=== PATIENT | female | born 1940 | race Caucasian/White ===

== ENCOUNTER → 2018-04-06 | Outpatient (CLI) | payer MEDICARE, OTHER ==
[~2018-04-06] MED LIST: ALPR0.25 PO; CALC-823 PO; FLUT16SP22 NSEACH; IBUP1CAP11 PO; LEVO125T PO; NF-ESOM40C PO
--- NOTE | 2018-04-06 11:29 | Diagnostic Imaging Report ---
INDICATION: Dyspnea. TIME OF EXAMINATION: 11:09 AM. COMPARISON: 10/03/2016. FINDINGS: The heart size is stable. There is a tiny nodular density in the right upper lung which appears fairly dense and may represent a granuloma. Otherwise, the lungs are clear. No effusion or pneumothorax is seen. Postsurgical changes in the thyroid bed are noted. IMPRESSION: No acute cardiopulmonary process is detected. There is a tiny nodular density in the right upper lobe measuring approximately 3 mm in size. This was not well seen on prior imaging. A short interval followup to confirm stability is recommended. Serial chest radiography or CT chest could be performed. Dictated by: Dictated on workstation # [id number]
== END ==
LOC: RAD 10:33
PROVIDERS: ATTEND Internal Medicine
DX: R06.00 Dyspnea, unspecified (principal)
CPT/HCPCS: 71046

== ENCOUNTER → 2018-04-15 | Outpatient (CLI) | payer MEDICARE, OTHER | LOC: RT 08:30 | PROVIDERS: ATTEND Internal Medicine | DX: R06.00 Dyspnea, unspecified (principal) | CPT/HCPCS: 94060; 94726; 94729 ==

== ENCOUNTER 2018-04-23 16:45 | Emergency (ER) | payer MEDICARE, OTHER ==
[~2018-04-23] VITALS: Ht 160 cm; Wt 70.3 kg
[2018-04-23] MEDS ORDERED: TETANUS,DIPTH,PERTUSS P/F (BOOSTRIX) 0.5 ML VIAL IM ONE (17:00)
[2018-04-23] MEDS ORDERED: LIDOCAINE 2% 20 ML (XYLOCAINE) VIAL INJ ONE (17:00)
--- NOTE | 2018-04-23 17:02 | ED Fall/Injury ---
General Chief Complaint: Head/Cervical Problems Stated Complaint: FALL/HEAD INJ Source: patient Exam Limitations: no limitations History of Present Illness Date Seen by Provider: Apr 23, 2018 Time Seen by Provider: 17:00 Initial Comments to ER with reports of a fall and head injury. She tripped while walking and has a hematoma/abrasion to the right side of the forehead. No loss of consciousness no confusion she is not on any anticoagulants. She also fell and hit her chest. She is scheduled to have a CT of the chest on Friday for follow-up on a pulmonary nodule seen on chest x-ray. Occurred: just prior to arrival Severity: moderate Injuries/Pain Location: head, chest Context: slipped Associated Symptoms (Fall): No Headache, No Neck Pain Allergies and Home Medications Allergies Coded Allergies: No Known Drug Allergies (Unverified , 05/07/11) Home Medications Alprazolam 0.25 Mg Tablet, 0.25 MG PO TID PRN for ANXIETY, (Reported) Calcium Carbonate 500 Mg Tablet, 500 MG PO DAILY, (Reported) Esomeprazole Magnesium 40 Mg Cap, 40 MG PO DAILY, (Reported) Fluticasone Propionate 16 Gm Custer.susp, 2 SPR NSEACH DAILY, (Reported) Ibuprofen/Diphenhydramine HCl 1 Each Capsule, 1 EACH PO HS, (Reported) Levothyroxine Sodium 125 Mcg Tablet, 125 MCG PO DAILY, (Reported) Patient Home Medication List Home Medication List Reviewed: Yes Review of Systems Constitutional: see HPI Eyes: No Symptoms Reported Ears, Nose, Mouth, Throat: no symptoms reported Respiratory: no symptoms reported Cardiovascular: no symptoms reported Genitourinary: no symptoms reported Musculoskeletal: no symptoms reported Skin: no symptoms reported Psychiatric/Neurological: No Symptoms Reported Past Olykrha-Wnvoxn-Fnqxco Hx Patient Social History Type Used: Cigarettes Recent Foreign Travel: No Contact w/Someone Who Travel: No Immunizations Up To Date Date of Pneumonia Vaccine: Jul 18, 2015 Date of Influenza Vaccine: Jul 18, 2015 Past Medical History Gallbladder Reproductive Disorders: No Gastroesophageal Reflux Arthritis Melanoma Family Medical History Cataracts 19 FATHER Completed stroke 19 FATHER (possible during his sleep,) Dementia 19 MOTHER Physical Exam Vital Signs Vital Signs - First Documented 04/23/18 16:50 Temp 97.1 Pulse 92 Resp 18 B/P (MAP) 144/85 (104) Pulse Ox 98 Capillary Refill : General Appearance: WD/WN, no apparent distress HEENT: PERRL/EOMI, normal ENT inspection, other (ecchymosis/hematoma over the right side of the forehead.) Neck: non-tender, full range of motion; No tender lateral, No tender midline Respiratory: normal breath sounds, no respiratory distress, no accessory muscle use Gastrointestinal: normal bowel sounds, non tender, soft Neurologic/Psychiatric: alert, normal mood/affect, oriented x 3 Skin: normal color, warm/dry Procedures/Interventions Wound Location: Face Wound Length (cm): 1 Wound's Depth, Shape: linear Wound Explored: clean Other Closure Supply: Wound Adhesive Progress/Results/Core Measures Results/Orders Lab Results Laboratory Tests Test 04/23/18 17:08 Range/Units White Blood Count 6.2 4.3-11.0 10^3/uL Red Blood Count 4.80 4.35-5.85 10^6/uL Hemoglobin 15.0 11.5-16.0 G/DL Hematocrit 43 35-52 % Mean Corpuscular Volume 89 80-99 FL Mean Corpuscular Hemoglobin 31 25-34 PG Mean Corpuscular Hemoglobin Concent 35 32-36 G/DL Red Cell Distribution Width 14.7 H 10.0-14.5 % Platelet Count 101 L 130-400 10^3/uL Mean Platelet Volume 10.8 H 7.4-10.4 FL Neutrophils (%) (Auto) 66 42-75 % Lymphocytes (%) (Auto) 20 12-44 % Monocytes (%) (Auto) 11 0-12 % Eosinophils (%) (Auto) 2 0-10 % Basophils (%) (Auto) 1 0-10 % Neutrophils # (Auto) 4.1 1.8-7.8 X 10^3 Lymphocytes # (Auto) 1.3 1.0-4.0 X 10^3 Monocytes # (Auto) 0.7 0.0-1.0 X 10^3 Eosinophils # (Auto) 0.1 0.0-0.3 10^3/uL Basophils # (Auto) 0.0 0.0-0.1 10^3/uL Sodium Level 141 135-145 MMOL/L Potassium Level 3.9 3.6-5.0 MMOL/L Chloride Level 112 H 98-107 MMOL/L Carbon Dioxide Level 19 L 21-32 MMOL/L Anion Gap 10 5-14 MMOL/L Blood Urea Nitrogen 11 7-18 MG/DL Creatinine 0.69 0.60-1.30 MG/DL Estimat Glomerular Filtration Rate > 60 BUN/Creatinine Ratio 16 Glucose Level 66 L 70-105 MG/DL Calcium Level 8.6 8.5-10.1 MG/DL My Orders Orders - KANDY DANIELS APRN Cbc With Automated Diff (04/23/18 16:58) Basic Metabolic Panel (04/23/18 16:58) Ct Head/Cervical Spine Wo (04/23/18 16:58) Ct Chest W (04/23/18 16:58) Lidocaine 2% Injection 20 Ml (Xylocaine (04/23/18 17:00) Dipht,Pertuss(Acell),Tet Adult (Boostrix (04/23/18 17:00) Iohexol Injection (Omnipaque 350 Mg/Ml 1 (04/23/18 18:00) Sodium Chloride Flush (Catheter Flush Sy (04/23/18 18:00) Ns (Ivpb) (Sodium Chloride 0.9%) (04/23/18 18:00) Medications Given in ED Current Medications Medications Dose Ordered Sig/Bety Route Start Time Stop Time Status Last Admin Dose Admin Iohexol 75 ml ONCE ONCE IV 04/23/18 18:00 04/23/18 18:01 DC 04/23/18 18:02 75 ML Sodium Chloride 10 ml NEEDED PRN IV 04/23/18 18:00 04/23/18 18:02 10 ML Sodium Chloride 250 ml ONCE ONCE IV 04/23/18 18:00 04/23/18 18:01 DC 04/23/18 18:02 80 ML Vital Signs/I&O 04/23/18 16:50 Temp 97.1 Pulse 92 Resp 18 B/P (MAP) 144/85 (104) Pulse Ox 98 Diagnostic Imaging Diagonstic Imaging: CT Plain Films/CT/US/NM/MRI: chest Comments NAME: ALLEN GARBER MED REC#: [id number] PT STATUS: REG ER : 1940 PHYSICIAN: KANDY DANIELS APRN ADMIT DATE: 04/23/18/ER Draft Date of Exam:04/23/18 CT CHEST W INDICATION: Fall with right-sided chest pain. CT chest obtained with IV contrast bolus. There is no prior chest CT for comparison. FINDINGS: There are no enlarged mediastinal or hilar nodes. There are no enlarged axillary nodes or chest wall lesions. There is no evidence of aortic injury or mediastinal hematoma. There is no pleural or pericardial fluid. Bony windows in the chest show no acute findings. Lung parenchymal windows demonstrate no pneumothorax or pulmonary contusion. There is a tiny nodule in the right upper lobe inferiorly measuring about 2-3 mm. Nodules of this size do not require a followup. This is best on image 30 of series 2. Visualized portions of the upper abdomen demonstrate diffuse nodularity of the liver contour with small size of the liver compatible with cirrhosis, with large varices in the left upper quadrant and splenomegaly. IMPRESSION: No acute traumatic process in the chest. No pneumothorax or pleural fluid or contusion. Tiny nodule in the right upper lobe as above; nodules of this size do not require CT followup. There are diffuse cirrhotic changes of the liver with large varices in the left upper quadrant and splenomegaly, compatible with portal hypertension. Dictated on workstation # [id number] Dict: 04/23/18 1804 Trans: 04/23/18 1812 [id number] Interpreted by: JENNA BARCLAY MD Electronically signed by: NAME: ALLEN GARBER [facility] MED REC#: [id number] PT STATUS: REG ER : 1940 PHYSICIAN: KANDY DANIELS APRN ADMIT DATE: 04/23/18/ER Draft Date of Exam:04/23/18 CT HEAD/CERVICAL SPINE WO PROCEDURE: CT head and CT cervical spine without contrast. TECHNIQUE: Multiple contiguous axial images were obtained through the brain and cervical spine without the use of intravenous contrast. Sagittal and coronal reformations through the cervical spine were then performed. INDICATION: Fall. Laceration and bruising along the right temporal region and periorbital region. CT head without: Comparison with 03/11/2015. FINDINGS: There is mild cortical atrophy. There is no evidence of intracranial hemorrhage. No mass effect. No extra-axial fluid collection. Basal cisterns are clear. CP angles are normal. Bone windows show the mastoid air cells to be clear. There is a very small air-fluid level noted in the right maxillary sinus. No fractures demonstrated. IMPRESSION: 1. No acute intracranial abnormalities. No evidence of calvarial fracture. 2. Minimal air-fluid level in the right maxillary sinus likely secondary to inflammatory changes. CT cervical spine: Sagittal and coronal reformatted images. FINDINGS: Good alignment of the vertebral bodies. Body height is well maintained. Atlantoaxial joint appears normal. There is loss of disc space height from C3-C7 with hypertrophic lipping of the endplates both anteriorly and posteriorly. There is no spinal stenosis. No significant bony encroachment is seen. No fractures are demonstrated. IMPRESSION: Diffuse degenerative cervical disc disease with no acute abnormalities. Dictated on workstation # [id number] Dict: 04/23/18 1802 Trans: 04/23/18 1809 [facility] [id number] Interpreted by: EVELYN GOODE MD Electronically signed by: Departure Impression Primary Impression: Traumatic hematoma of forehead Additional Impression: Closed head injury Disposition: 01 HOME, SELF-CARE Condition: Stable Departure-Patient Inst. Decision time for Depature: 18:00 Referrals: YARITZA IBRAHIM MD (PCP/Family) Primary Care Physician Patient Instructions: HEMATOMA Add. Discharge Instructions: All discharge instructions reviewed with patient and/or family. Voiced understanding. Copy Copies To 1: YARITZA IBRAHIM MD, PETER J RESIN MAKER Apr 23, 2018 17:02
[2018-04-23 17:16] LABS: BASOPHILS % (AUTO) 1 % (0-10); EOSINOPHILS # (AUTO) 0.1 10^3/uL (0.0-0.3); EOSINOPHILS % (AUTO) 2 % (0-10); HEMATOCRIT 43 % (35-52); LYMPHOCYTES # (AUTO) 1.3 X 10^3 (1.0-4.0); LYMPHOCYTES % (AUTO) 20 % (12-44); MEAN CORPUSCULAR HEMOGLOBIN 31 PG (25-34); MEAN CORPUSCULAR HGB CONC 35 G/DL (32-36); MEAN CORPUSCULAR VOLUME 89 FL (80-99); MEAN PLATELET VOLUME 10.8 FL (7.4-10.4); MONOCYTES # (AUTO) 0.7 X 10^3 (0.0-1.0); MONOCYTES % (AUTO) 11 % (0-12); NEUTROPHILS # (AUTO) 4.1 X 10^3 (1.8-7.8); NEUTROPHILS % (AUTO) 66 % (42-75); PLATELET COUNT 101 10^3/uL (130-400); RED CELL DISTRIBUTION WIDTH 14.7 % (10.0-14.5); WHITE BLOOD COUNT 6.2 10^3/uL (4.3-11.0)
[2018-04-23 17:30] LABS: BUN/CREATININE RATIO 16; CALCIUM 8.6 MG/DL (8.5-10.1); CARBON DIOXIDE 19 MMOL/L (21-32); CHLORIDE 112 MMOL/L (98-107); CREATININE SERUM 0.69 MG/DL (0.60-1.30); GFR ESTIMATED > 60; GLUCOSE 66 MG/DL (70-105); POTASSIUM 3.9 MMOL/L (3.6-5.0); SODIUM 141 MMOL/L (135-145)
[2018-04-23] MEDS ORDERED: IOHEXOL 350 MG/ML 100 ML (OMNIPAQUE 350) VIAL IV ONE (18:00)
[2018-04-23] MEDS ORDERED: NS 250 ML (IVPB) BAG IV ONE (18:00)
[2018-04-23] MEDS ORDERED: CATHETER FLUSH 10 ML SYR IV PRN (18:00)
--- NOTE | 2018-04-23 18:10 | Diagnostic Imaging Report ---
PROCEDURE: CT head and CT cervical spine without contrast. TECHNIQUE: Multiple contiguous axial images were obtained through the brain and cervical spine without the use of intravenous contrast. Sagittal and coronal reformations through the cervical spine were then performed. INDICATION: Fall. Laceration and bruising along the right temporal region and periorbital region. CT head without: Comparison with 03/11/2015. FINDINGS: There is mild cortical atrophy. There is no evidence of intracranial hemorrhage. No mass effect. No extra-axial fluid collection. Basal cisterns are clear. CP angles are normal. Bone windows show the mastoid air cells to be clear. There is a very small air-fluid level noted in the right maxillary sinus. No fractures demonstrated. IMPRESSION: 1. No acute intracranial abnormalities. No evidence of calvarial fracture. 2. Minimal air-fluid level in the right maxillary sinus likely secondary to inflammatory changes. CT cervical spine: Sagittal and coronal reformatted images. FINDINGS: Good alignment of the vertebral bodies. Body height is well maintained. Atlantoaxial joint appears normal. There is loss of disc space height from C3-C7 with hypertrophic lipping of the endplates both anteriorly and posteriorly. There is no spinal stenosis. No significant bony encroachment is seen. No fractures are demonstrated. IMPRESSION: Diffuse degenerative cervical disc disease with no acute abnormalities. Dictated by: Dictated on workstation # [id number]
--- NOTE | 2018-04-23 18:13 | Diagnostic Imaging Report ---
INDICATION: Fall with right-sided chest pain. CT chest obtained with IV contrast bolus. There is no prior chest CT for comparison. FINDINGS: There are no enlarged mediastinal or hilar nodes. There are no enlarged axillary nodes or chest wall lesions. There is no evidence of aortic injury or mediastinal hematoma. There is no pleural or pericardial fluid. Bony windows in the chest show no acute findings. Lung parenchymal windows demonstrate no pneumothorax or pulmonary contusion. There is a tiny nodule in the right upper lobe inferiorly measuring about 2-3 mm. Nodules of this size do not require a followup. This is best on image 30 of series 2. Visualized portions of the upper abdomen demonstrate diffuse nodularity of the liver contour with small size of the liver compatible with cirrhosis, with large varices in the left upper quadrant and splenomegaly. IMPRESSION: No acute traumatic process in the chest. No pneumothorax or pleural fluid or contusion. Tiny nodule in the right upper lobe as above; nodules of this size do not require CT followup. There are diffuse cirrhotic changes of the liver with large varices in the left upper quadrant and splenomegaly, compatible with portal hypertension. Dictated by: Dictated on workstation # [id number]
[2018-04-23 18:25] VITALS: BP 144/85
== END 2018-04-23 18:25 | disposition home or self-care (01) ==
LOC: EDUNIT# 16:45 → ER 16:46
DX: S09.90XA Unspecified injury of head, initial encounter (principal); S00.83XA Contusion of other part of head, initial encounter; K21.9 Gastro-esophageal reflux disease without esophagitis; Z85.820 Personal history of malignant melanoma of skin; Z79.51 Long term (current) use of inhaled steroids; Z23 Encounter for immunization; W01.198A Fall on same level from slipping, tripping and stumbling with subsequent striking against other object, initial encounter
CPT/HCPCS: 36415; 70450; 71260; 72125; 80048; 85025

== ENCOUNTER → 2018-04-30 | Outpatient (CLI) | payer MEDICARE, OTHER ==
--- NOTE | 2018-04-30 13:44 | Diagnostic Imaging Report ---
INDICATION: Right-sided chest wall pain after fall. COMPARISON: Chest radiograph of 04/06/2018. TECHNIQUE: 3 views of right ribs were obtained. FINDINGS AND IMPRESSION: 1. Acute to subacute minimally displaced fracture of the right anterior eighth rib. 2. No pneumothorax or pleural effusion. Dictated by: Dictated on workstation # [id number]
== END ==
LOC: RAD 10:02
PROVIDERS: ATTEND Internal Medicine
DX: S22.31XA Fracture of one rib, right side, initial encounter for closed fracture (principal); W19.XXXA Unspecified fall, initial encounter
CPT/HCPCS: 71100

== ENCOUNTER → 2018-05-05 | Outpatient (CLI) | payer MEDICARE, OTHER ==
[~2018-05-05] MED LIST changes: +IOHEXOL 350 MG/ML 100 ML (OMNIPAQUE 350) VIAL IV ONE; +NS 250 ML (IVPB) BAG IV ONE
[2018-05-05 10:39] LABS: BASOPHILS # (AUTO) 0.1 10^3/uL (0.0-0.1); BASOPHILS % (AUTO) 1 % (0-10); EOSINOPHILS # (AUTO) 0.2 10^3/uL (0.0-0.3); EOSINOPHILS % (AUTO) 4 % (0-10); HEMATOCRIT 41 % (35-52); HEMOGLOBIN 14.3 G/DL (11.5-16.0); LYMPHOCYTES # (AUTO) 1.5 X 10^3 (1.0-4.0); LYMPHOCYTES % (AUTO) 29 % (12-44); MEAN CORPUSCULAR HEMOGLOBIN 31 PG (25-34); MEAN CORPUSCULAR HGB CONC 35 G/DL (32-36); MEAN CORPUSCULAR VOLUME 89 FL (80-99); MONOCYTES # (AUTO) 0.4 X 10^3 (0.0-1.0); MONOCYTES % (AUTO) 8 % (0-12); NEUTROPHILS # (AUTO) 2.9 X 10^3 (1.8-7.8); NEUTROPHILS % (AUTO) 58 % (42-75); PLATELET COUNT 128 10^3/uL (130-400); RED CELL DISTRIBUTION WIDTH 15.1 % (10.0-14.5)
[2018-05-05 10:52] LABS: INR 1.5 (0.8-1.4); PROTHROMBIN TIME PATIENT 18.1 SEC (12.2-14.7)
[2018-05-05 10:57] LABS: ALANINE AMINOTRANSFERASE 14 U/L (0-55); ALBUMIN 2.9 GM/DL (3.2-4.5); ALKALINE PHOSPHATASE 124 U/L (40-136); BILIRUBIN,TOTAL 2.8 MG/DL (0.1-1.0); BUN/CREATININE RATIO 10; CALCIUM 8.2 MG/DL (8.5-10.1); CARBON DIOXIDE 21 MMOL/L (21-32); CHLORIDE 112 MMOL/L (98-107); GFR ESTIMATED > 60; GLUCOSE 84 MG/DL (70-105); POTASSIUM 3.5 MMOL/L (3.6-5.0); SODIUM 141 MMOL/L (135-145); TOTAL PROTEIN 5.5 GM/DL (6.4-8.2)
--- NOTE | 2018-05-05 13:15 | Diagnostic Imaging Report ---
PROCEDURE: CT chest, abdomen, and pelvis with and without contrast. TECHNIQUE: Precontrast images were obtained of the chest, abdomen, and pelvis. Multiple contiguous axial images were obtained through the chest, abdomen, and pelvis after administration of intravenous contrast. INDICATION: Fall on 04/23/2018 with right rib fracture and anterior chest pain and right upper quadrant pain. COMPARISON: Comparison is made with prior CT from 04/23/2018. FINDINGS: CT chest: There are multiple surgical clips in the region of the thyroid bed. No axillary, hilar or mediastinal lymphadenopathy is detected. No pericardial or pleural fluid is identified. No parenchymal contusion or pneumothorax is seen. There is some subsegmental atelectasis right lower lobe. Evaluation of bony structures demonstrates fractures involving the right anterior eighth rib and right posterior sixth rib. There also appears to be a nondisplaced fracture involving the sternal body. No definite retrosternal hematoma is seen. IMPRESSION: 1. Nondisplaced fracture of the sternal body as well as right sixth and eighth rib fractures. No parenchymal contusion, mediastinal hematoma or pneumothorax is detected. CT abdomen and pelvis: Liver demonstrates nodular contour consistent with cirrhosis. No discrete liver mass is identified. The gallbladder is surgically absent. The pancreas is unremarkable. The spleen is enlarged. Multiple varices in the left abdomen are noted. No adrenal mass is seen. Kidneys are unremarkable apart from a 2mm stone in the mid right ureter with mild hydronephrosis. Aorta is calcified but nonaneurysmal. No free fluid or hemoperitoneum is seen. The bowel loops are of normal caliber. There is no ascites. There is sigmoid diverticulosis without evidence of acute diverticulitis. Bladder and uterus are unremarkable. IMPRESSION: 1. Findings consistent with cirrhosis and portal hypertension. No discrete liver mass is detected. 2. No evidence of abdominal or pelvic visceral injury. 3. Uncomplicated diverticulosis. 4. 2mm mid right ureteric calculus with mild hydronephrosis. Dictated by: Dictated on workstation # [id number]
== END ==
LOC: RAD 10:12
PROVIDERS: ATTEND Physician Assistant
DX: K92.1 Melena (principal); S22.41XA Multiple fractures of ribs, right side, initial encounter for closed fracture; K57.30 Diverticulosis of large intestine without perforation or abscess without bleeding; N13.2 Hydronephrosis with renal and ureteral calculous obstruction
CPT/HCPCS: 36415; 71270; 74178; 80053; 85025; 85610; 85730

== ENCOUNTER → 2019-12-27 | Outpatient (CLI) | payer MEDICARE, OTHER ==
[~2019-12-27] MED LIST changes: -IOHEXOL 350 MG/ML 100 ML (OMNIPAQUE 350) VIAL IV ONE; -NS 250 ML (IVPB) BAG IV ONE
--- NOTE | 2019-12-27 14:25 | Diagnostic Imaging Report ---
INDICATION: Pneumonia. FINDINGS: There is cardiomegaly. There is some patchy right basilar subsegmental atelectasis and/or pneumonitis. There is no pleural effusion or pneumothorax. Mediastinum is unremarkable. IMPRESSION: Cardiomegaly with some patchy right basilar subsegmental atelectasis and/or pneumonitis. Dictated by: Dictated on workstation # [id number]
== END ==
LOC: RAD 11:11
PROVIDERS: ATTEND Nurse Practitioner
DX: J18.9 Pneumonia, unspecified organism (principal); I51.7 Cardiomegaly
CPT/HCPCS: 71046

== ENCOUNTER → 2020-01-10 | Outpatient (CLI) | payer MEDICARE, OTHER ==
--- NOTE | 2020-01-10 16:43 | Diagnostic Imaging Report ---
INDICATION: Pneumonia. PA and lateral views of the chest obtained with comparison made to study of 12/27/2019. There is air trapping, bilaterally. Surgical clips are seen in the lower neck. No consolidation, pneumothorax or pleural effusion is identified. Overall, there has been no significant change. IMPRESSION: Stable background emphysema without acute abnormality or adverse change. Dictated by: Dictated on workstation # [id number]
== END ==
LOC: RAD 13:58
PROVIDERS: ATTEND Nurse Practitioner
DX: J18.9 Pneumonia, unspecified organism (principal); J43.9 Emphysema, unspecified
CPT/HCPCS: 71046

== ENCOUNTER → 2020-03-30 | Outpatient (CLI) | payer MEDICARE, OTHER ==
--- NOTE | 2020-03-30 17:33 | Diagnostic Imaging Report ---
INDICATION: Walking pneumonia. COMPARISON: Two-view chest from 01/10/2020. EXAMINATION: Two views of the chest were obtained. FINDINGS: The lungs are clear. The heart and vessels are normal. There is no effusion or pneumothorax. No focal consolidation. IMPRESSION: No acute appearing radiographic abnormality. Dictated by: Dictated on workstation # [id number]
== END ==
LOC: RAD 14:26
PROVIDERS: ATTEND Nurse Practitioner
DX: J18.9 Pneumonia, unspecified organism (principal)
CPT/HCPCS: 71046

== ENCOUNTER → 2021-03-12 | Outpatient (CLI) | payer MEDICARE, OTHER ==
[2021-03-12 11:51] LABS: HEMOGLOBIN 15.5 g/dL (11.5-16.0); MEAN PLATELET VOLUME 12.1 fL (9.0-12.2); WHITE BLOOD COUNT 4.9 10^3/uL (4.3-11.0)
--- NOTE | 2021-03-12 11:51 | Diagnostic Imaging Report ---
PATIENT HISTORY: CONFUSION, DYSPNEA. TECHNIQUE: Two views of the chest. COMPARISON: 03/30/2020 FINDINGS: The lung volumes are normal. No focal consolidation is seen. No large pleural effusion or pneumothorax is seen. The cardiomediastinal silhouette is normal in size and contour. No acute osseous abnormality is seen. Surgical clips are noted at the neck. IMPRESSION: No acute pulmonary abnormality seen. Dictated by: Dictated on workstation # [id number]
[2021-03-12 12:23] LABS: ALANINE AMINOTRANSFERASE 13 U/L (0-55); ALBUMIN 3.1 GM/DL (3.2-4.5); ALKALINE PHOSPHATASE 104 U/L (40-136); BILIRUBIN,TOTAL 6.2 MG/DL (0.1-1.0); BUN/CREATININE RATIO 13; CALCIUM 8.5 MG/DL (8.5-10.1); CARBON DIOXIDE 20 MMOL/L (21-32); CHLORIDE 111 MMOL/L (98-107); CREATININE SERUM 0.84 MG/DL (0.60-1.30); GFR ESTIMATED > 60; GLUCOSE 76 MG/DL (70-105); POTASSIUM 3.7 MMOL/L (3.6-5.0); SODIUM 143 MMOL/L (135-145)
== END ==
LOC: RAD 11:08
PROVIDERS: ATTEND Nurse Practitioner Family
DX: E80.7 Disorder of bilirubin metabolism, unspecified (principal); R41.0 Disorientation, unspecified
CPT/HCPCS: 36415; 71046; 80053; 85027; 85379

== ENCOUNTER → 2021-05-02 | Outpatient (CLI) | payer MEDICARE, OTHER | LOC: CARD 09:30 | PROVIDERS: ATTEND Nurse Practitioner Family | DX: I07.1 Rheumatic tricuspid insufficiency (principal); I51.7 Cardiomegaly; R60.9 Edema, unspecified | CPT/HCPCS: 93005; 93306 ==

== ENCOUNTER → 2021-05-02 | Outpatient (CLI) | payer MEDICARE, OTHER ==
[~2021-05-02] MED LIST changes: +CATHETER FLUSH 10 ML SYR IV PRN; +HOLD METFORMIN - RECEIVED CONTRAST 20 ML VIAL IV SCH; +IOHEXOL 350 MG/ML 100 ML (OMNIPAQUE 350) VIAL IV ONE; +NS 100 ML (IVPB) BAG IV ONE
--- NOTE | 2021-05-02 16:51 | Diagnostic Imaging Report ---
PROCEDURE: CT angiography of the chest with contrast. TECHNIQUE: Multiple contiguous axial images were obtained through the chest after uneventful bolus administration of intravenous contrast. 3D reconstructed CTA MIP acquisitions were also performed. Auto Exposure Controls were utilized during the CT exam to meet ALARA standards for radiation dose reduction. DATE: May 02, 2021. COMPARISON: Chest radiographs March 12, 2021. CT chest, abdomen, and pelvis May 05, 2018. INDICATION: 80-year-old female, dyspnea. Shortness of breath. FINDINGS: There is no identified pulmonary nodule. There is no lung mass. There is mild dependent atelectasis in the right and left lower lobes. There is no pneumothorax. There is no pleural effusion. The central airways are patent. There is no identified pulmonary embolus. The main pulmonary artery diameter is within normal limits at 2.8 cm. There are atherosclerotic calcifications. The heart is not enlarged. There is no pericardial effusion. There is no identified abnormally enlarged mediastinal, hilar, or axillary lymph node meeting CT size criteria for adenopathy. The thyroid gland appears absent. There is nonspecific fairly diffuse subcutaneous edema. The liver is nodular, consistent with cirrhosis. The patient is status post cholecystectomy. There are dilated collateral vessels in the left upper quadrant. There is nonspecific wall thickening of the stomach. There is a displaced fracture of the sternum which appears likely chronic. There is no identified acute bony abnormality. IMPRESSION: 1. No identified pulmonary embolus or other acute cardiopulmonary abnormality. 2. Cirrhosis. 3. Nonspecific wall thickening of the stomach. This potentially could relate to a nonspecific gastritis, malignancy, or cirrhosis in a hypoalbuminemic state. 4. Nonspecific generalized subcutaneous edema. Dictated by: Dictated on workstation # [id number]
== END ==
LOC: RAD 16:04
PROVIDERS: ATTEND Nurse Practitioner Family
DX: K74.60 Unspecified cirrhosis of liver (principal); R06.00 Dyspnea, unspecified; R06.02 Shortness of breath; R94.31 Abnormal electrocardiogram [ECG] [EKG]
CPT/HCPCS: 71275

== ENCOUNTER → 2021-05-14 | Outpatient (CLI) | payer MEDICARE, OTHER ==
[~2021-05-14] MED LIST changes: -CATHETER FLUSH 10 ML SYR IV PRN; -HOLD METFORMIN - RECEIVED CONTRAST 20 ML VIAL IV SCH; -IOHEXOL 350 MG/ML 100 ML (OMNIPAQUE 350) VIAL IV ONE; -NS 100 ML (IVPB) BAG IV ONE; +RT-ALBUTEROL SULF 2.5 MG/3 ML PRE-MIX VIAL INH ONE
== END ==
LOC: RT 09:30
PROVIDERS: ATTEND Nurse Practitioner Family
DX: Z13.83 Encounter for screening for respiratory disorder NEC (principal); R06.00 Dyspnea, unspecified
CPT/HCPCS: 94060; 94726; 94729

== ENCOUNTER 2021-07-01 16:19 | Inpatient (IN) | payer MEDICARE, OTHER ==
[~2021-07-01] VITALS: Ht 160 cm; Wt 70.3 kg
[~2021-07-01 16:19] MED LIST changes: -RT-ALBUTEROL SULF 2.5 MG/3 ML PRE-MIX VIAL INH ONE
[2021-07-01 16:47] LABS: EOSINOPHILS % (AUTO) 0 % (0-10); HEMOGLOBIN 14.9 g/dL (11.5-16.0); MEAN CORPUSCULAR HEMOGLOBIN 31 pg (25-34)
[2021-07-01 16:49] LABS: BASOPHILS % (AUTO) 0 % (0-10); HEMATOCRIT 46 % (35-52); LYMPHOCYTES # (AUTO) 0.4 10^3/uL (1.0-4.0); LYMPHOCYTES % (AUTO) 6 % (12-44); MEAN CORPUSCULAR HGB CONC 32 g/dL (32-36); MEAN CORPUSCULAR VOLUME 96 fL (80-99); MEAN PLATELET VOLUME 11.8 fL (9.0-12.2); MONOCYTES # (AUTO) 0.4 10^3/uL (0.0-1.0); MONOCYTES % (AUTO) 5 % (0-12); NEUTROPHILS % (AUTO) 89 % (42-75); PLATELET COUNT 72 10^3/uL (130-400); WHITE BLOOD COUNT 7.8 10^3/uL (4.3-11.0)
[2021-07-01 16:52] LABS: ALBUMIN 2.9 GM/DL (3.2-4.5)
--- NOTE | 2021-07-01 16:53 | ED General ---
General Stated Complaint: FALL Source of Information: Patient, Caregiver, EMS Exam Limitations: Physical Impairments (Confusion of patient) History of Present Illness Date Seen by Provider: Jul 01, 2021 Time Seen by Provider: 16:31 Initial Comments Here by EMS after being found in the bathroom confused and down on all fours. Unknown about fall or loss of consciousness. Patient has had history of UTIs causing similar problems but also has been told that she has liver disease and m ay have elevated ammonia levels. The family has been dealing with this for the last 3 to 4 months and it seems to be getting worse. They are unsure of what is going on due to difficulties with doctors appointments because the different providers have canceled for one reason or another. They are very concerned about her health currently. Patient denies any complaints and states that she does not want to be here but she is obviously quite confused and not answering questions well. She does follow simple commands. No report of vomiting or diarrhea. Last known well time was 1 AM. This is when her grandson noted that she had gone to the bathroom and she had told him that he was running late tonight. Apparently the conversation at the time seem to be appropriate but has changed significantly when he found her this afternoon. Timing/Duration: 12 Hours Severity: Moderate Associated Systoms: Weakness Allergies and Home Medications Allergies Coded Allergies: No Known Drug Allergies (Unverified , 05/07/11) Home Medications Alprazolam 0.25 Mg Tablet, 0.25 MG PO TID PRN for ANXIETY, (Reported) Calcium Carbonate 500 Mg Tablet, 500 MG PO DAILY, (Reported) Esomeprazole Magnesium 40 Mg Cap, 40 MG PO DAILY, (Reported) Fluticasone Propionate 16 Gm Ducor.susp, 2 SPR NSEACH DAILY, (Reported) Ibuprofen/Diphenhydramine HCl 1 Each Capsule, 1 EACH PO HS, (Reported) Levothyroxine Sodium 125 Mcg Tablet, 125 MCG PO DAILY, (Reported) Patient Home Medication List Home Medication List Reviewed: Yes Review of Systems Review of Systems Constitutional: No chills, No fever EENTM: no symptoms reported Cardiovascular: No chest pain Gastrointestinal: No vomiting Genitourinary: see HPI, other (Strong smell of urine) Unable to complete review of systems due to patient's underlying confusion and altered mental status. Past Ornnzgz-Ybxajq-Kdvswj Hx Patient Social History Tobacco Use?: No Immunizations Up To Date Tetanus Booster (TDap): Less than 5yrs Past Medical History Surgeries: Yes (c/s x2, melanoma from arm, breast lumpectomy) Gallbladder Respiratory: No (chronic cough) Cardiac: No Neurological: No Reproductive Disorders: No Gastrointestinal: Yes Gastroesophageal Reflux Musculoskeletal: Yes Arthritis Endocrine: Yes Cancer: Yes Melanoma Psychosocial: No Integumentary: No Blood Disorders: No Family Medical History Reviewed Nursing Family Hx Cataracts 19 FATHER Completed stroke 19 FATHER (possible during his sleep,) Dementia 19 MOTHER Physical Exam-Suspected Sepsis Physical Exam Vital Signs Vital Signs - First Documented 07/01/21 16:20 Temp 30.3 Pulse 98 Resp 18 B/P (MAP) 115/72 (86) Pulse Ox 94 O2 Delivery Nasal Cannula O2 Flow Rate 2.00 Capillary Refill : Height, Weight, BMI Height: 5'3.00" Weight: 155lbs. 0.0oz. 70.066905ch; 30.3 BMI Method:Stated General Appearance: WD/WN, Mild Distress HEENT: PERRL/EOMI, Pharynx Normal, Other (Mucous membranes moist) Neck: Full Range of Motion, Normal Inspection, Non Tender, Supple Respiratory: Lungs Clear, Normal Breath Sounds Cardiovascular: Regular Rate, Rhythm, No Murmur Gastrointestinal: Non Tender, Soft Extremity: Normal Capillary Refill, Normal Inspection, Normal Range of Motion, Non Tender, No Calf Tenderness, Pelvis Stable Neurologic/Psychiatric: Other (Awake but confused and slightly agitated. Calms with verbal and is redirectable.) Skin: ecchymosis (Left foot the base of the third toe mild ecchymosis. No obvious deformity. No pain on palpation.) Focused Exam Lactate Level 07/01/21 16:45: Lactic Acid Level 7.44*H Lactic Acid Level Laboratory Tests Test 07/01/21 16:45 Lactic Acid Level 7.44 MMOL/L (0.50-2.00) *H Progress/Results/Core Measures Suspected Sepsis SIRS Temperature: Pulse: Respiratory Rate: Laboratory Tests 07/01/21 16:23: White Blood Count 7.8 Blood Pressure / Mean: 07/01/21 16:45: Lactic Acid Level 7.44*H Laboratory Tests 07/01/21 16:23: Creatinine 1.35H, INR Comment 2.0H, Platelet Count 72L, Total Bilirubin 6.5H Results/Orders Lab Results Laboratory Tests Test 07/01/21 16:23 07/01/21 16:31 07/01/21 16:45 Range/Units White Blood Count 7.8 4.3-11.0 10^3/uL Red Blood Count 4.84 3.80-5.11 10^6/uL Hemoglobin 14.9 11.5-16.0 g/dL Hematocrit 46 35-52 % Mean Corpuscular Volume 96 80-99 fL Mean Corpuscular Hemoglobin 31 25-34 pg Mean Corpuscular Hemoglobin Concent 32 32-36 g/dL Red Cell Distribution Width 15.3 H 10.0-14.5 % Platelet Count 72 L 130-400 10^3/uL Mean Platelet Volume 11.8 9.0-12.2 fL Immature Granulocyte % (Auto) 0 % Neutrophils (%) (Auto) 89 H 42-75 % Lymphocytes (%) (Auto) 6 L 12-44 % Monocytes (%) (Auto) 5 0-12 % Eosinophils (%) (Auto) 0 0-10 % Basophils (%) (Auto) 0 0-10 % Neutrophils # (Auto) 7.0 1.8-7.8 10^3/uL Lymphocytes # (Auto) 0.4 L 1.0-4.0 10^3/uL Monocytes # (Auto) 0.4 0.0-1.0 10^3/uL Eosinophils # (Auto) 0.0 0.0-0.3 10^3/uL Basophils # (Auto) 0.0 0.0-0.1 10^3/uL Immature Granulocyte # (Auto) 0.0 0.0-0.1 10^3/uL Neutrophils % (Manual) 91 % Lymphocytes % (Manual) 6 % Monocytes % (Manual) 3 % Percent Immature Platelet Fraction 3.9 0.0-7.6 % Poikilocytosis SLIGHT Prothrombin Time 23.3 H 12.2-14.7 SEC INR Comment 2.0 H 0.8-1.4 Activated Partial Thromboplast Time 36 H 24-35 SEC Sodium Level 139 135-145 MMOL/L Potassium Level 4.0 3.6-5.0 MMOL/L Chloride Level 107 98-107 MMOL/L Carbon Dioxide Level 15 L 21-32 MMOL/L Anion Gap 17 H 5-14 MMOL/L Blood Urea Nitrogen 17 7-18 MG/DL Creatinine 1.35 H 0.60-1.30 MG/DL Estimat Glomerular Filtration Rate 38 BUN/Creatinine Ratio 13 Glucose Level 127 H 70-105 MG/DL Calcium Level 8.5 8.5-10.1 MG/DL Corrected Calcium 9.4 8.5-10.1 MG/DL Total Bilirubin 6.5 H 0.1-1.0 MG/DL Aspartate Amino Transf (AST/SGOT) 48 H 5-34 U/L Alanine Aminotransferase (ALT/SGPT) 18 0-55 U/L Alkaline Phosphatase 112 40-136 U/L Ammonia 139 H 11-32 UMOL/L C-Reactive Protein High Sensitivity 0.23 0.00-0.50 MG/DL Total Protein 5.9 L 6.4-8.2 GM/DL Albumin 2.9 L 3.2-4.5 GM/DL Urine Color YELLOW Urine Clarity CLEAR Urine pH 7.5 5-9 Urine Specific [place] 1.010 L 1.016-1.022 Urine Protein NEGATIVE NEGATIVE Urine Glucose (UA) NEGATIVE NEGATIVE Urine Ketones NEGATIVE NEGATIVE Urine Nitrite NEGATIVE NEGATIVE Urine Bilirubin NEGATIVE NEGATIVE Urine Urobilinogen >=8.0 < = 1.0 MG/DL Urine Leukocyte Esterase NEGATIVE NEGATIVE Urine RBC (Auto) TRACE-I NEGATIVE Urine RBC 5-10 H /HPF Urine WBC 0-2 /HPF Urine Squamous Epithelial Cells 2-5 /HPF Urine Renal Epithelial Cells 2-5 /HPF Urine Crystals NONE /LPF Urine Bacteria TRACE /HPF Urine Casts PRESENT /LPF Urine Hyaline Casts 5-10 H /LPF Urine Mucus NEGATIVE /LPF Urine Culture Indicated CULTURE PENDING Lactic Acid Level 7.44 *H 0.50-2.00 MMOL/L My Orders Orders - SEBASTIAN ADAMES MD Cbc With Automated Diff (07/01/21 16:39) Comprehensive Metabolic Panel (07/01/21 16:39) Blood Culture (07/01/21 16:39) Sputum Culture (07/01/21 16:39) Urinalysis (07/01/21 16:39) Urine Culture (07/01/21 16:39) Protime With Inr (07/01/21 16:39) Partial Thromboplastin Time (07/01/21 16:39) Chest 1 View, Ap/Pa Only (07/01/21 16:39) Ed Iv/Invasive Line Start (07/01/21 16:39) Vital Signs Adult Sepsis Patie Q15M (07/01/21 16:39) O2 (07/01/21 16:39) Remove Rings In Anticipation O (07/01/21 16:39) Lactic Acid Analyzer (07/01/21 16:39) Ammonia (07/01/21 16:39) Hs C Reactive Protein (07/01/21 16:39) Straight Cath For Spec.-Adult (07/01/21 16:39) Ct Head/Cervical Spine Wo (07/01/21 16:40) Manual Differential (07/01/21 16:23) Vital Signs/I&O 07/01/21 07/01/21 16:20 16:20 Temp 30.3 Pulse 98 Resp 18 B/P (MAP) 115/72 (86) Pulse Ox 94 94 O2 Delivery Nasal Cannula O2 Flow Rate 2.00 2.00 Capillary Refill : Progress Note : Progress Note Seen and evaluated. We will complete normal saline 1 L bolus initiated by EMS. Sepsis protocol initiated. UA obtained via in and out cath. We will check ammo michael level as well due to history of liver disease and elevated ammonia. Monitor patient. 1809: I had a long conversation with the family as her ammonia level was quite elevated as well as her lactic acid. INR is also elevated with low platelets. All of these are indicative of end-stage liver disease. She was told in February that she had 3 to 6 months to live due to her liver failure related to cirrhosis. I did discuss with him multiple options including admission with lactulose which they have accepted. Patient is DNR. They are understanding that the patient is at end-stage. We did discuss hospice briefly and they do understand that that might be an appropriate measure moving forward and I believe are open to that discussion. We will continue treatment for now. If she continues to decline or worsen then comfort care could be discussed. Lactulose 30 mL p.o. ordered for now. Admit, inpatient status. I did discuss the case with Dr. Cordova and she agrees to admission and plan. Family agrees to plan. There is questionable infiltrates on the chest x-ray. CRP is low and white count is normal. She is afebrile. I do believe this is atelectasis. I do believe the lactic acid elevation is related to liver failure and not sepsis. There is no indication of infection currently so no indication of sepsis. Diagnostic Imaging Diagonstic Imaging: CT Plain Films/CT/US/NM/MRI: c-spine, head Comments NAME: CARI GARBERLEY [facility] REC#: [id number] PT STATUS: REG ER : 1940 PHYSICIAN: SEBASTIAN ADAMES MD ADMIT DATE: 07/01/21/ER Draft Date of Exam:07/01/21 CT HEAD/CERVICAL SPINE WO PROCEDURE: CT head and CT cervical spine without contrast. TECHNIQUE: Multiple contiguous axial images were obtained through the brain and cervical spine without the use of intravenous contrast. Sagittal and coronal reformations through the cervical spine were then performed. Auto Exposure Controls were utilized during the CT exam to meet ALARA standards for radiation dose reduction. INDICATION: Fall. Scalp contusion. Head and neck pain. COMPARISON: 04/23/2018. FINDINGS: CT head: No large acute territorial ischemia, mass or hemorrhage. Scattered chronic microvascular disease is present in the periventricular and subcortical white matter. No midline shift or mass effect. The ventricles, cortical sulci and basilar cisterns are patent and unremarkable. The calvarium is intact. The visualized paranasal sinuses are clear. CT cervical spine: No acute fracture or dislocation is seen in the cervical spine. No focal osseous lesion. Generalized osteopenia is noted. The craniocervical junction is well maintained. Mild degenerative changes are seen in the cervical spine with disc osteophyte complexes and uncovertebral arthropathy. Soft tissues of the neck are unremarkable. IMPRESSION: 1. No hemorrhage or focal intra-axial mass. No CT evidence of large acute territorial ischemia. 2. No acute fracture or dislocation in the cervical spine. 3. Scattered chronic microvascular disease in the periventricular and subcortical white matter. Dictated on workstation # [id number] Dict: 07/01/21 1721 Trans: 07/01/21 1726 [facility] [id number] Interpreted by: YASMEEN NIELSON DO Electronically signed by: Diagonstic Imaging: Xray Plain Films/CT/US/NM/MRI: chest Comments [facility] [place] [facility] [id number] PT STATUS: REG ER : 1940 PHYSICIAN: SEBASTIAN ADAMES MD ADMIT DATE: 07/01/21/ER Draft Date of Exam:07/01/21 CHEST 1 VIEW, AP/PA ONLY EXAMINATION: Chest 1 view. HISTORY: Sepsis. COMPARISON: 03/12/2021. FINDINGS: The lung volumes are normal. Patchy opacity is seen in the left lung base. No large pleural effusion or pneumothorax is seen. The cardiomediastinal silhouette is prominent. No acute osseous abnormality is seen. IMPRESSION: 1. Patchy opacities in the left lung base, which may represent atelectasis or infection. 2. Mild cardiomegaly. Dictated on workstation # [id number] Dict: 07/01/211745 Trans: 07/01/21 174 [facility] [id number] Interpreted by: YASMEEN NIELSON DO Electronically signed by: Departure Communication (Admissions) Time/Spoke to Admitting Phy: 18:00 Impression Primary Impression: Hepatic encephalopathy Additional Impression: End stage liver disease Disposition: ADMITTED INPATIENT Condition: Stable Admissions Decision to Admit Reason: Admit from ER (General) Decision to Admit/Date: Jul 01, 2021 Time/Decision to Admit Time: 18:00 Departure-Patient Inst. Referrals: YARITZA IBRAHIM MD (PCP/Family) Primary Care Physician SEBASTIAN ADAMES MD Jul 01, 2021 16:53
[2021-07-01 16:54] LABS: CALCIUM 8.5 MG/DL (8.5-10.1); PROTHROMBIN TIME PATIENT 23.3 SEC (12.2-14.7)
[2021-07-01 16:55] LABS: TOTAL PROTEIN 5.9 GM/DL (6.4-8.2)
[2021-07-01 16:57] LABS: BILIRUBIN,TOTAL 6.5 MG/DL (0.1-1.0)
[2021-07-01 16:58] LABS: CREATININE SERUM 1.35 MG/DL (0.60-1.30)
[2021-07-01 16:58] LABS: BILIRUBIN,URINE NEGATIVE (NEGATIVE); CLARITY,URINE CLEAR; COLOR,URINE YELLOW; GLUCOSE, URINE (UA) NEGATIVE (NEGATIVE); KETONES,URINE NEGATIVE (NEGATIVE); LEUKOCYTE ESTERASE ,URINE NEGATIVE (NEGATIVE); NITRITE,URINE NEGATIVE (NEGATIVE); PH,URINE 7.5 (5-9); PROTEIN,URINE NEGATIVE (NEGATIVE)
[2021-07-01 17:20] LABS: LYMPHOCYTES % (MANUAL) 6 %; MONOCYTES % (MANUAL) 3 %; NEUTROPHILS % (MANUAL) 91 %; POIKILOCYTOSIS SLIGHT
--- NOTE | 2021-07-01 17:27 | Diagnostic Imaging Report ---
PROCEDURE: CT head and CT cervical spine without contrast. TECHNIQUE: Multiple contiguous axial images were obtained through the brain and cervical spine without the use of intravenous contrast. Sagittal and coronal reformations through the cervical spine were then performed. Auto Exposure Controls were utilized during the CT exam to meet ALARA standards for radiation dose reduction. INDICATION: Fall. Scalp contusion. Head and neck pain. COMPARISON: 04/23/2018. FINDINGS: CT head: No large acute territorial ischemia, mass or hemorrhage. Scattered chronic microvascular disease is present in the periventricular and subcortical white matter. No midline shift or mass effect. The ventricles, cortical sulci and basilar cisterns are patent and unremarkable. The calvarium is intact. The visualized paranasal sinuses are clear. CT cervical spine: No acute fracture or dislocation is seen in the cervical spine. No focal osseous lesion. Generalized osteopenia is noted. The craniocervical junction is well maintained. Mild degenerative changes are seen in the cervical spine with disc osteophyte complexes and uncovertebral arthropathy. Soft tissues of the neck are unremarkable. IMPRESSION: 1. No hemorrhage or focal intra-axial mass. No CT evidence of large acute territorial ischemia. 2. No acute fracture or dislocation in the cervical spine. 3. Scattered chronic microvascular disease in the periventricular and subcortical white matter. Dictated by: Dictated on workstation # [id number]
[2021-07-01 17:30] LABS: BACTERIA,URINE TRACE /HPF; WBC,URINE 0-2 /HPF
--- NOTE | 2021-07-01 17:48 | Diagnostic Imaging Report ---
EXAMINATION: Chest 1 view. HISTORY: Sepsis. COMPARISON: 03/12/2021. FINDINGS: The lung volumes are normal. Patchy opacity is seen in the left lung base. No large pleural effusion or pneumothorax is seen. The cardiomediastinal silhouette is prominent. No acute osseous abnormality is seen. IMPRESSION: 1. Patchy opacities in the left lung base, which may represent atelectasis or infection. 2. Mild cardiomegaly. Dictated by: Dictated on workstation # [id number]
[2021-07-01] MEDS ORDERED: LACTULOSE SYRUP 10GM/15ML (ENULOSE) 30ML UDC PO STA (18:08)
[2021-07-01 19:35] VITALS: BP 117/74
[2021-07-01] MEDS ORDERED: ONDANSETRON 4 MG/2 ML (SDV) Z0FRAN IV PRN (20:45)
[2021-07-01] MEDS ORDERED: MILK OF MAGNESIA 400 MG/5 ML 30 ML UDC PO PRN (20:45)
[2021-07-01] MEDS: LACTULOSE SYRUP 10GM/15ML (ENULOSE) 30ML UDC PO SCH (21:15)
[2021-07-01] MEDS: NS IV 1000 ML 1,000 ML IV SCH (21:16)
[2021-07-01 23:23] VITALS: BP 119/59
[2021-07-02] MEDS ORDERED: ALPRAZolam 0.25 MG (XANAX) TAB ONE (00:44)
[2021-07-02] MEDS: ALPRAZolam 0.25 MG (XANAX) TAB PO PRN ×2 (00:58→11:17)
[2021-07-02 03:38] VITALS: BP 94/52
[2021-07-02] MEDS: ANTACID SUSP 30 ML UDC (MYLANTA) PO PRN ×2 (03:57→11:17)
[2021-07-02 06:47] LABS: BASOPHILS % (AUTO) 0 % (0-10); EOSINOPHILS % (AUTO) 0 % (0-10); HEMATOCRIT 39 % (35-52); HEMOGLOBIN 12.7 g/dL (11.5-16.0); LYMPHOCYTES # (AUTO) 1.1 10^3/uL (1.0-4.0); LYMPHOCYTES % (AUTO) 15 % (12-44); MEAN CORPUSCULAR HEMOGLOBIN 31 pg (25-34); MEAN CORPUSCULAR HGB CONC 33 g/dL (32-36); MEAN CORPUSCULAR VOLUME 93 fL (80-99); MEAN PLATELET VOLUME 10.9 fL (9.0-12.2); MONOCYTES # (AUTO) 0.7 10^3/uL (0.0-1.0); MONOCYTES % (AUTO) 9 % (0-12); NEUTROPHILS # (AUTO) 5.6 10^3/uL (1.8-7.8); NEUTROPHILS % (AUTO) 75 % (42-75); PLATELET COUNT 58 10^3/uL (130-400); WHITE BLOOD COUNT 7.5 10^3/uL (4.3-11.0)
[2021-07-02 07:00] LABS: POTASSIUM 3.4 MMOL/L (3.6-5.0)
[2021-07-02 07:01] LABS: CALCIUM 7.9 MG/DL (8.5-10.1)
[2021-07-02 07:06] LABS: CREATININE SERUM 0.91 MG/DL (0.60-1.30)
[2021-07-02 07:44] VITALS: BP 114/70
[2021-07-02] MEDS: NS IV 1000 ML 1,000 ML IV SCH ×2 (07:53→17:46)
[2021-07-02] MEDS: LACTULOSE SYRUP 10GM/15ML (ENULOSE) 30ML UDC PO SCH ×3 (07:54→19:57)
--- NOTE | 2021-07-02 10:56 | History & Physical-Hospitalist ---
History of Present Illness HPI/Chief Complaint Pt is a 81yoCF with a PMH of ESLD who presented to the ER due to altered mental status. She lives with her grandson and was at her normal state when he went to work yesterday. When he returned he found her confused and on the ground. She was unable to tell them if she had fallen. She is still quite confused and unable to tell me any history. She knew her name but otherwise thought she was in a bank and did not know the year. Her son is at bedside and thinks she is somewhat improved from yesterday but not back to normal yet. She apparently was told by her GI doctor that she has ESLD and roughly 3-6 months life expectancy. That was roughly 3 months ago per ER report. Her ammonia was 139 and she was admitted for hepatic encephalopathy. Source: patient Date Seen 07/02/21 Time Seen by a Provider: 10:56 Attending Physician Carlitos Cordova MD PCP Devon Lozano MD Referring Physician Date of Admission Jul 01, 2021 at 17:51 Home Medications & Allergies Home Medications Reviewed patient Home Medication Reconciliation performed by pharmacy medication reconciliations renewable energy technician and/or nursing. Patients Allergies have been reviewed. Allergies Allergies Coded Allergies No Known Drug Allergies (Unverified05/07/11) Past Mdpgttu-Jguvnu-Dggghv Hx Patient Social History Tobacco Use?: No Smoking Status: Former Smoker Smokeless Tobacco Frequency: Never a User Use of E-Cig and/or Vaping dev: No Substance use?: No Alcohol Use?: No Pt feels they are or have been: No Immunizations Up To Date Date of Influenza Vaccine: Jul 18, 2015 First/Initial COVID19 Vaccinat: FEBRUARY 2021 Second COVID19 Vaccination Tio: MARCH 2021 Tetanus Booster (TDap): Unknown Hepatitis A: Yes Hepatitis B: Yes Date of Pneumonia Vaccine: Jul 18, 2015 Current Status status: No status: No Advance Directives: Yes Advance Directive Location: Family to bring in copy Communicates: Verbally Primary Language: Thai Preferred Spoken Language: Thai Is interpretation needed?: No Past Medical History Surgeries: Gallbladder Gastroesophageal Reflux Arthritis Melanoma Blood Disorders: No Family Medical History Reviewed Nursing Family Hx Cataracts 19 FATHER Completed stroke 19 FATHER (possible during his sleep,) Dementia 19 MOTHER Review of Systems ROS-Unable to Obtain: encephalopathy Constitutional: see HPI Physical Exam Physical Exam Vital Signs Vital Signs - First Documented 8/15/21 16:20 Temp 36.3 Pulse 98 Resp 18 B/P (MAP) 115/72 (86) Pulse Ox 94 O2 Delivery Nasal Cannula O2 Flow Rate 2.00 Capillary Refill : Less Than 3 Seconds Height, Weight, BMI Height: 5'3.00" Weight: 155lbs. 0.0oz. 70.569628bj; 28.90 BMI Method:Stated General Appearance: No Apparent Distress, Chronically ill HEENT: PERRL/EOMI, Moist Mucous Membranes; No Scleral Icterus (L), No Scleral Icterus (R) Respiratory: Lungs Clear, No Accessory Muscle Use, No Respiratory Distress Cardiovascular: Regular Rate, Rhythm, No Murmur Gastrointestinal: Normal Bowel Sounds, Non Tender, Soft Extremity: No Calf Tenderness, No Pedal Edema Neurologic/Psychiatric: Alert, Disoriented Skin: Normal Color, Warm/Dry Results Results/Procedures Labs Laboratory Tests 07/01/21 16:23 07/02/21 06:35 Patient resulted labs reviewed. Imaging: Reviewed Imaging Report [facility] [place] [place] NAME: ALLEN GARBER [facility] REC#: [id number] PT STATUS: REG ER : 1940 PHYSICIAN: SEBASTIAN ADAMES MD ADMIT DATE: 07/01/21/ER Signed Date of Exam:07/01/21 CHEST 1 VIEW, AP/PA ONLY EXAMINATION: Chest 1 view. HISTORY: Sepsis. COMPARISON: 03/12/2021. FINDINGS: The lung volumes are normal. Patchy opacity is seen in the left lung base. No large pleural effusion or pneumothorax is seen. The cardiomediastinal silhouette is prominent. No acute osseous abnormality is seen. IMPRESSION: 1. Patchy opacities in the left lung base, which may represent atelectasis or infection. 2. Mild cardiomegaly. Dictated by: Dictated on workstation # [id number] Dict: 07/01/211745 Trans: 07/01/211754 [facility] [id number] Interpreted by: YASMEEN NIELSON DO Electronically signed by: YASMEEN NIELSON DO 07/01/211754 [facility] [place] NAME: ALLEN GARBER [facility] REC#: [id number] PT STATUS: REG ER : 1940 PHYSICIAN: SEBASTIAN ADAMES MD ADMIT DATE: 07/01/21/ER Signed Date of Exam:07/01/21 CT HEAD/CERVICAL SPINE WO PROCEDURE: CT head and CT cervical spine without contrast. TECHNIQUE: Multiple contiguous axial images were obtained through the brain and cervical spine without the use of intravenous contrast. Sagittal and coronal reformations through the cervical spine were then performed. Auto Exposure Controls were utilized during the CT exam to meet ALARA standards for radiation dose reduction. INDICATION: Fall. Scalp contusion. Head and neck pain. COMPARISON: 04/23/2018. FINDINGS: CT head: No large acute territorial ischemia, mass or hemorrhage. Scattered chronic microvascular disease is present in the periventricular and subcortical white matter. No midline shift or mass effect. The ventricles, cortical sulci and basilar cisterns are patent and unremarkable. The calvarium is intact. The visualized paranasal sinuses are clear. CT cervical spine: No acute fracture or dislocation is seen in the cervical spine. No focal osseous lesion. Generalized osteopenia is noted. The craniocervical junction is well maintained. Mild degenerative changes are seen in the cervical spine with disc osteophyte complexes and uncovertebral arthropathy. Soft tissues of the neck are unremarkable. IMPRESSION: 1. No hemorrhage or focal intra-axial mass. No CT evidence of large acute territorial ischemia. 2. No acute fracture or dislocation in the cervical spine. 3. Scattered chronic microvascular disease in the periventricular and subcortical white matter. Dictated by: Dictated on workstation # [id number] Dict: 07/01/211720 Trans: 07/01/211742 [facility] [phone] Interpreted by: YASMEEN NIELSON DO Electronically signed by: YASMEEN NIELSON DO 07/01/21 1743 Assessment/Plan Admission Diagnosis Hepatic encephalopathy Admission Status: Inpatient Order (span 2 midnights) Reason for Inpatient Admission: see below Assessment and Plan Hepatic encephalopathy ESLD Continue with lactulose Ammonia down to 49 this morning Discussed with son that this may be progression of her end stage disease but will continue lactulose and monitor response No indication of UTI on UA Hypothyroidism Continue home meds DVT ppx: Lovenox Diagnosis/Problems Diagnosis/Problems (1) Hepatic encephalopathy Status: Acute (2) End stage liver disease Status: Acute CARLITOS CORDOVA MD Jul 02, 2021 10:56
[2021-07-02 11:28] VITALS: BP 108/57
[2021-07-02] MEDS ORDERED: PANT40TA2 PO (12:56)
[2021-07-02] MEDS ORDERED: FLUT1DIS26 IH (13:02)
[2021-07-02] MEDS ORDERED: SPIR25TA5 PO (13:02)
[2021-07-02] MEDS ORDERED: POTA10TA6 PO (13:02)
[2021-07-02] MEDS ORDERED: POTA10TA PO (13:51)
[2021-07-02] MEDS ORDERED: LEVO75TA6 PO (13:51)
[2021-07-02] MEDS ORDERED: ONDA4TAB11 PO (13:51)
[2021-07-02] MEDS ORDERED: FURO20TA4 PO (13:51)
[2021-07-02 15:44] VITALS: BP 104/55
[2021-07-02 19:14] VITALS: BP 109/52
[2021-07-02] MEDS: MELATONIN 3 MG TABLET PO PRN (19:57)
[2021-07-02 23:02] VITALS: BP 105/67
[2021-07-03 03:08] VITALS: BP 103/65
[2021-07-03] MEDS: NS IV 1000 ML 1,000 ML IV SCH ×3 (03:51→23:09)
[2021-07-03] MEDS: LEVOTHYROXINE 75 MCG (LEVOTHROID) TABLET PO SCH (05:56)
[2021-07-03] MEDS: KCL 10 MEQ TAB (MICRO K) PO SCH (05:56)
[2021-07-03 08:00] VITALS: BP 95/53
[2021-07-03] MEDS: FUROSEMIDE 20 MG (LASIX) TAB PO SCH (08:19)
[2021-07-03] MEDS: LACTULOSE SYRUP 10GM/15ML (ENULOSE) 30ML UDC PO SCH ×3 (08:19→20:39)
[2021-07-03] MEDS ORDERED: ACETAMINOPHEN 325 MG TABLET PO PRN (11:15)
[2021-07-03 12:00] VITALS: BP 122/62
--- NOTE | 2021-07-03 12:00 | Progress Note - Hospitalist ---
JOANNA WALSH 07/03/21 1200: Subjective HPI/CC On Admission Pt is a 81yoCF with a PMH of ESLD who presented to the ER due to altered mental status. She lives with her grandson and was at her normal state when he went to work yesterday. When he returned he found her confused and on the ground. She was unable to tell them if she had fallen. She is still quite confused and unable to tell me any history. She knew her name but otherwise thought she was in a bank and did not know the year. Her son is at bedside and thinks she is somewhat improved from yesterday but not back to normal yet. She apparently was told by her GI doctor that she has ESLD and roughly 3-6 months life expectancy. That was roughly 3 months ago per ER report. Her ammonia was 139 and she was admitted for hepatic encephalopathy. Subjective/Events-last exam Pt reports that she is feeling about the same as she was yesterday. Having some rt side rib pain. Denies any falls recently. According to pt she was told by her PCP that she probably only had 3-6 months to live a few months ago. She says that being told that upset her and "was not very nice". Pt denied hospice care when offered today. Review of Systems General: No Chills, No Other (fever) Pulmonary: Cough; No Other (SOB) Cardiovascular: No: Chest Pain, Palpitations Gastrointestinal: No: Nausea, Vomiting Musculoskeletal: other (Rt rib pain) Neurological: No: Numbness, Other (head ache) Focused Exam Lactate Level 07/01/21 22:00: Lactic Acid Level 3.62*H 07/01/21 23:40: Lactic Acid Level 3.03*H 07/02/21 06:35: Lactic Acid Level 1.96 Objective Exam Vital Signs Vital Signs Date Time Temp Pulse Resp B/P (MAP) Pulse Ox O2 Delivery O2 Flow Rate FiO2 07/03/21 08:21 Nasal Cannula 2.00 07/03/21 08:00 36.2 77 20 95/53 (67) 94 Capillary Refill : Less Than 3 Seconds General Appearance: Chronically ill Respiratory: No Respiratory Distress, Wheezing (right upper lung field ) Cardiovascular: Regular Rate, Rhythm, No Murmur Gastrointestinal: Non Tender, Soft Extremity: Normal Inspection, No Pedal Edema Neurologic/Psychiatric: Alert, Oriented x3, Normal Mood/Affect Skin: Warm/Dry; No Other (No spider telangiectasia ) Results/Procedures Lab Patient resulted labs reviewed. Imaging: Reviewed Imaging Report Assessment/Plan Assessment and Plan Assess & Plan/Chief Complaint Assessment Hepatic encephalopathy ESLD Hypothyroidism Plan Continue current monitoring and medications. Discussed starting hospice care. Pt declined. OZ ALVARADO MD 07/03/21 1644: Subjective HPI/CC On Admission Date Seen by Provider: Jul 03, 2021 Time Seen by Provider: 09:25 Assessment/Plan Assessment and Plan Assess & Plan/Chief Complaint Continue lactulose, encephalopathy improving. Likely discharge in the next 1-2 days. Diagnosis/Problems Diagnosis/Problems (1) Hepatic encephalopathy Status: Acute (2) End stage liver disease Status: Acute Supervisory-Addendum Brief Verification & Attestation Participated in pt care: history, MDM, physical Personally performed: exam, history, MDM, supervision of care Care discussed with: Medical Student Procedures: n/a Results interpretation: Verified all documentation A medical student performed and documented this service in my presence. I reviewed and verified all information documented by the medical student and made modifications to such information, when appropriate. I personally performed the physical exam and medical decision making. JOANNA WALSH Jul 03, 2021 12:00 OZ ALVARADO MD Jul 03, 2021 16:44
[2021-07-03 15:11] VITALS: BP 116/56
[2021-07-03 20:17] VITALS: BP 127/57
[2021-07-03] MEDS: MELATONIN 3 MG TABLET PO PRN (20:39)
[2021-07-03] MEDS: RIFAXIMIN 550 MG TABLET (XIFAXAN) PO SCH (20:39)
[2021-07-03 23:14] VITALS: BP 125/73
[2021-07-04 03:26] VITALS: BP 131/70
[2021-07-04] MEDS: KCL 10 MEQ TAB (MICRO K) PO SCH (05:43)
[2021-07-04] MEDS: LEVOTHYROXINE 75 MCG (LEVOTHROID) TABLET PO SCH (05:43)
[2021-07-04 07:20] VITALS: BP 136/67
[2021-07-04 07:33] LABS: POTASSIUM 3.7 MMOL/L (3.6-5.0)
[2021-07-04 07:34] LABS: CALCIUM 7.8 MG/DL (8.5-10.1)
[2021-07-04 07:39] LABS: CREATININE SERUM 0.75 MG/DL (0.60-1.30)
[2021-07-04 07:41] LABS: MAGNESIUM 1.7 MG/DL (1.6-2.4)
[2021-07-04] MEDS: FUROSEMIDE 20 MG (LASIX) TAB PO SCH (08:48)
[2021-07-04] MEDS: LACTULOSE SYRUP 10GM/15ML (ENULOSE) 30ML UDC PO SCH ×2 (08:48→13:27)
[2021-07-04] MEDS: RIFAXIMIN 550 MG TABLET (XIFAXAN) PO SCH (08:48)
[2021-07-04 11:25] VITALS: BP 114/68
[2021-07-04] MEDS ORDERED: LACT20SO2 PO (13:58)
--- NOTE | 2021-07-04 14:40 | Physical Therapy Evaluation ---
PT Evaluation-General Medical Diagnosis Admission Date Jul 01, 2021 at 17:51 Medical Diagnosis: Hepatic Encephalopathy Onset Date: Jul 01, 2021 Therapy Diagnosis Therapy Diagnosis: impaired mobility Height/Weight Height (Feet): 5 Height (Inches): 3.00 Weight (Pounds): 155 Weight (Ounces): 0.0 Precautions Precautions/Isolations: Fall Prevention, Standard Precautions Referral Reason for Referral: Evaluation/Treatment Medical History Additional Medical History End Stage Liver Disease, COPD Current History Pt passed out at home, likely due to liver disease. She was admitted with altered mental status. Social History Home: Single Level Current Living Status: Other Family Entry Into Home: Stairs With Railing PT Steps Into Home: 1 Pt lives at home. She has a granson that lives with her and helps take care of her. Prior Prior Level of Function SCALE: Activities may be completed with or without assistive devices. 9-Oxmdojzbmz-fhulfes completes the activity by him/herself with no assistance from a helper. 5-Set-up or Clean-up Assistance-helper sets up or cleans up; patient completes activity. [place] assists only prior to or following the activity. 4-Supervision or Touching Assistance-helper provides verbal cues and/or touching/steadying and/or contact guard assistance as patient completes activity. Assistance may be provided throughout the activity or intermittently. 3-Partial/Moderate Assistance-helper does LESS THAN HALF the effort. [place] lifts, holds or supports trunk or limbs, but provides less than half the effort. 2-Substantial/Maximal Assistance-helper does MORE THAN HALF the effort. [place] lifts or holds trunk or limbs and provides more than half the effort. 2-Gcigbnrzi-pfillz does ALL the effort. Patient does none of the effort to complete the activity. Or, the assistance of 2 or more helpers is required for the patient to complete the activity. If activity was not attempted, code reason: 7-Patient Refused. 9-Not Applicable-not attempted and the patient did not perform the activity before the current illness, exacerbation or injury. 10-Not Attempted due to Environmental Limitations-(lack of equipment, weather restraints, etc.). 88-Not Attempted due to Medical Conditions or Safety Concerns. Bed Mobility: 6 Transfers (B,C,W/C): 6 Gait: 6 Stairs: 6 Prior Device Use: uses a cane, has a shower chair PT Evaluation-Current Subjective Pt is still mildly confused. She does report she plans to return home with her grandson. Grandson is present and says this is the plan if she can walk. Objective Patient Orientation: Confused ROM/Strength ROM Lower Extremities WFL Strength Lower Extremities Gross 4/5 Sensory Vision: Functional Hearing: Functional Transfers Roll Left to Right (QC): 6 Sit to Lying (QC): 6 Lying to Sitting/Side of Bed(Q: 6 Sit to Stand (QC): 5 Chair/Kpo-gj-Ibqnd Xfer(QC): 4 supervision for transfers to assist with safety and balance Gait Does the Patient Walk?: Yes Mode of Locomotion: Walk Distance: 200 Gait Assistive Device: Handheld Assist Comments/Gait Description Pt walked 200ft with hand hold assist and O2 at 6L. Pt had no loss of balance despite having mild lateral ataxia. Her son reports she looks about normal. She furniture walks at home. Balance Sitting Static: Good Sitting Dynamic: Good Standing Static: Fair Standing Dynamic: Fair Assessment/Needs Pt does demonstrate impaired balance but per son is close to baseline. There is concern about poor decision making due to confusion. She is a risk for falls if unsupervised in the home. Rehab Potential: Fair Post Rehab Potential-Barriers: confusion and end range liver disease PT Longterm Goals Longterm Goals PT Longterm Goals Time Frame: Jul 06, 2021 Roll Left & Right (QC): 6 Sit to Lying (QC): 6 Lying-Sitting on Side/Bed(QC): 6 Sit to Stand (QC): 6 Chair/Mxj-qy-Ejqjl Xfer(QC): 6 Car Transfer (QC): 4 Does the Patient Walk: Yes Walk 150 ft (QC): 5 PT Plan Problem List Problem List: Safety, Gait Treatment/Plan Treatment Plan: Continue Plan of Care Treatment Duration: Jul 06, 2021 Frequency: 6 times per week Estimated Hrs Per Day: .25 hour per day Patient and/or Family Agrees t: Yes Discharge Recommendations Plan Recommend home health PT,OT for home safety and modification Therapy Discharge Recommendati: Post Acute PT Target Placement home with grandson Time/GCodes Time In: 1330 Time Out: 1400 Total Billed Treatment Time: 30 Total Billed Treatment visit, Eval Mod Complexity 30 min JERI DE LA VEGA PT Jul 04, 2021 14:40
--- NOTE | 2021-07-04 15:04 | Occupational Therapy Eval ---
OT Evaluation-General/PLF Medical Diagnosis Admission Date Jul 01, 2021 at 17:51 Medical Diagnosis: Hepatic Encephalopathy Onset Date: Jul 01, 2021 Therapy Diagnosis Therapy Diagnosis: decreased ADL status Height/Weight Height (Feet): 5 Height (Inches): 3.00 Weight (Pounds): 155 Weight (Ounces): 0.0 Precautions Precautions/Isolations: Fall Prevention, Standard Precautions Referral Physician: Zhao Referral Reason: Evaluation/Treatment Medical History Additional Medical History end stage liver disease, GERD, arthritis, melanoma Current History ED due to EMS, grandson found pt on ground and confused Social History Home: Single Level Current Living Status: Other Family Entry Into Home: Stairs With Railing Steps Into Home: 1 ADL-Prior Level of Function SCALE: Activities may be completed with or without assistive devices. 4-Esvnlkrqrm-xsuwijm completes the activity by him/herself with no assistance from a helper. 5-Set-up or Clean-up Assistance-helper sets up or cleans up; patient completes activity. [place] assists only prior to or following the activity. 4-Supervision or Touching Assistance-helper provides verbal cues and/or touching/steadying and/or contact guard assistance as patient completes activity. Assistance may be provided throughout the activity or intermittently. 3-Partial/Moderate Assistance-helper does LESS THAN HALF the effort. [place] lifts, holds or supports trunk or limbs, but provides less than half the effort. 2-Substantial/Maximal Assistance-helper does MORE THAN HALF the effort. [place] lifts or holds trunk or limbs and provides more than half the effort. 0-Hqechlmqj-brwhey does ALL the effort. Patient does none of the effort to complete the activity. Or, the assistance of 2 or more helpers is required for the patient to complete the activity. If activity was not attempted, code reason: 7-Patient Refused. 9-Not Applicable-not attempted and the patient did not perform the activity before the current illness, exacerbation or injury. 10-Not Attempted due to Environmental Limitations-(lack of equipment, weather restraints, etc.). 88-Not Attempted due to Medical Conditions or Safety Concerns. ADL PLOF Comments Pt indicates IND with ADLs and functional mobility at PLOF, no AD/AE Self Care: Independent Functional Cognition: Independent OT Current Status Subjective Pt laying in bed, agreeable to OT tx. Pt's son present during tx. Mental Status/Objective Patient Orientation: Person, Place, Situation Attachments: Oxygen Current Glasses/Contacts: Yes Hand Dominance: Right Upper Extremity ROM WFL Upper Extremity Coordination WFL Upper Extremity Sensation WFL Upper Extremity Strength grossly 3+/5 ADL-Treatment Eating (QC): 6 (per pt report) Lower Body Dressing (QC): 4 (SBA, pt able to thread BLEs and perform pant hike) Toileting Hygiene (QC): 4 (SBA, pt able to manage clothing and perform hygiene) Other Treatments Pt laying in bed, transferred supine to sit EOB, SBA. Pt used FWW to perform functional mobility into bathroom and onto toilet. Pt donned LE clothing, then completed toileting. Pt stood at sink to wash hands, SBA, then returned to bed. Pt transferred supine with SBA. Post tx, pt laying in bed, call light in reach and all needs met. Education OT Patient Education: Correct positioning, Modified ADL techniques, Progress toward Goal/Update tx plan, Purpose of tx/functional activities, Rehab process Teaching Recipient: Patient Teaching Methods: Discussion Response to Teaching: Verbalize Understanding OT Jail Goals Jail Goals Time Frame: Jul 13, 2021 Eating (QC): 6 Oral Hygiene (QC): 6 Toileting Hygiene (QC): 6 Shower/Bathe Self (QC): 6 Upper Body Dressing (QC): 6 Lower Body Dressing (QC): 6 On/Off Footwear (QC): 6 1=Demonstrate adherence to instructed precautions during ADL tasks. 2=Patient will verbalize/demonstrate understanding of assistive devices/modifications for ADL. 3=Patient will improve strength/tolerance for activity to enable patient to perform ADL's. OT Education/Plan Problem List/Assessment Assessment: Decreased Activ Tolerance, Decreased Safety Aware, Decreased UE Strength, Impaired Funct Balance, Impaired I ADL's, Impaired Self-Care Skills Discharge Recommendations Plan/Recommendations: Continue POC Therapy Discharge Recommendati: Home & Family, Post Acute OT (Home Health) Treatment Plan/Plan of Care Patient would benefit from OT for education, treatment and training to promote independence in ADL's, mobility, safety and/or upper extremity function for ADL's. Plan of Care: ADL Retraining, Functional Mobility, UE Funct Exercise/Act Treatment Duration: Jul 13, 2021 Frequency: 5 times per week Estimated Hrs Per Day: .25 hour per day Rehab Potential: Fair Time/GCodes Start Time: 14:11 Stop Time: 14:30 Total Time Billed (hr/min): 19 Billed Treatment Time 1, RICHARD HUNTER OT Jul 04, 2021 15:04
[2021-07-04 16:00] VITALS: BP 134/67
--- NOTE | 2021-07-04 16:38 | Discharge Summary ---
Discharge Summary Reconcile Patient Problems Problems Reviewed?: Yes Instructions for Patient [facility], Assessment/Instructions Take medications as prescribed. Begin taking Lactulose. Follow up with your PCP. Return with worsening confusion or if you feel like you are getting worse. Physician to follow Patient: Marta Discharge Diet for Home: Low Sodium Diet Hospital Course Date of Admission: Jul 01, 2021 at 17:51 Admission Diagnosis : Hepatic encephalopathy Family Physician/Provider: Devon Lozano MD Date of Discharge: 07/04/21 Discharge Diagnosis: Decompensated cirrhosis with hepatic encephalopathy Hospital Course: Emelina Smyth is an 81 year old female with end stage liver disease who was admitted with decompensated cirrhosis and hepatic encephalopathy. She was started on Lactulose and her encephalopathy resolved. She will continue Lactulose at home with a goal of 3-4 bowel movements per day. She will follow up with her PCP Dr Lozano in about a week. She was set up with home health care on discharge. Hospice care and the palliative bridge program with [facility]ina was discussed but not yet initiated. Labs and Pending Lab Test: Laboratory Tests 07/04/21 07:15: Sodium Level 137, Potassium Level 3.7, Chloride Level 113H, Carbon Dioxide Level 14L, Anion Gap 10, Blood Urea Nitrogen 13, Creatinine 0.75, Estimat Glomerular Filtration Rate 74, BUN/Creatinine Ratio 17, Glucose Level 67L, Calcium Level 7.8L, Magnesium Level 1.7 Microbiology 07/01/21 Blood Culture - Preliminary, Resulted No growth 07/01/21 Urine Culture - Final, Complete NO GROWTH Home Meds Active Lactulose 20 Gm/30 Ml Solution 20 Gm PO TID 30 Days Reported Furosemide 20 Mg Tablet 20 Mg PO DAILY Levothyroxine Sodium 75 Mcg Tablet 75 Mcg PO DAILY K-Tab ER (Potassium Chloride) 10 Meq Tablet.er 10 Meq PO DAILY Ondansetron Odt (Ondansetron) 4 Mg Tab.rapdis 4 Mg PO Q8H PRN Xanax (Alprazolam) 0.25 Mg Tablet 0.25 Mg PO TID PRN Patient Allergies: Coded Allergies: No Known Drug Allergies (Unverified , 05/07/11) Height (Feet): 5 Height (Inches): 3.00 Weight (Pounds): 155 Weight (Ounces): 0.0 Home Health Need/Face to Face Date of Face to Face: Jul 04, 2021 Clinical Findings: Muscle weakness, Unsteady gait I have seen Pt [id number]: Yes Discharged To: Home Diagnosis/Conditions: End stage liver disease Cirrhosis Debility Problems/Diagnosis/Condition: (1) End stage liver disease (2) Hepatic encephalopathy Patient is Homebound due to: Hua fall risk due to instabilty, Muscle weakness Homebound Status Due to the above stated illness, injury or surgical procedure (medical condition or diagnosis) and associated clinical findings, the patient is homebound because of his/her inability to leave home except with aid of a supportive device and/or person AND leaving the home requires a considerable and taxing effort or is medically contraindicated. Pt req the following assistanc: Aid of another person, Walker Home Health Nursing Orders Home Health Services Order: Nursing Services, Assistant Cross Country Coach-Evaluate & Treat, Physical Therapy-Evaluate & Treat Therapy Orders Therapy Orders: OT (must have SN or PT order), Physical Therapy Therapy Specific Orders: Eval assistive deivces, Teach enviro modifications/safety, Gait training, Increase strength/endurance Certify Stmt I certify that this patient is under my care and that I, a nurse practitioner or a physician; a assistant cross country coach working with me, had a face to face encounter that - meets the physician face to face encounter requirements with this patient as dated. Discharge Physical Exam General: Alert, Oriented X3, Cooperative, No Acute Distress HEENT: Atraumatic, EOMI, Mucous Memb Moist/[place] Lungs: Clear to Auscultation, Normal Air Movement Heart: Regular Rate, Normal S1, Normal S2, No Murmurs Abdomen: Normal Bowel Sounds, Soft, No Tenderness Extremities: No Edema, No Tenderness/Swelling Skin: No Rashes, No Significant Lesion Neuro: Normal Speech, Normal Tone Psych/Mental Status: Mental Status NL, Mood NL OZ ALVARADO MD Jul 04, 2021 16:38
[2021-07-04 18:00] VITALS: BP 134/67
== END 2021-07-04 18:00 | disposition home health service (06) | DRG 443 ==
LOC: EDUNIT# 16:19 → ER 16:21 → 4TH 17:51
PROVIDERS: ADMIT Family Medicine; ATTEND Family Medicine
DX: K72.90 Hepatic failure, unspecified without coma (principal); K74.60 Unspecified cirrhosis of liver; K21.9 Gastro-esophageal reflux disease without esophagitis; M19.91 Primary osteoarthritis, unspecified site; E03.9 Hypothyroidism, unspecified; Z87.891 Personal history of nicotine dependence; Z85.820 Personal history of malignant melanoma of skin
CPT/HCPCS: 36415; 51701; 70450; 71045; 72125; 80048; 80053; 81000; 82140; 83605; 83735; 85007; 85025; 85027; 85610; 85730; 86141; 87040; 87088